=== PATIENT | female | born 1970 | race Two or more races ===

== ENCOUNTER 2020-02-05 13:12 | Emergency (ER) | payer SELFPAY ==
[~2020-02-05] VITALS: Ht 165.1 cm; Wt 56.2 kg
--- NOTE | 2020-02-05 13:23 | NUR ---
dr roland at bedside for eval.
--- NOTE | 2020-02-05 13:24 | NUR ---
pt to er bed 02 c/o dizziness w/ generalized weakness for the past 2 days now. pt was told by pmd to go to er for low hemoglobin. pt placed on monitor. stable vitals. awaiting md blanca.
[2020-02-05] MEDS ORDERED: IV NS 0.9% 1,000 ML BAG IV ONE (13:30)
--- NOTE | 2020-02-05 13:35 | NUR ---
iv line started blood drawn and sent to lab.
[2020-02-05 13:44] LABS: BASOPHILS % (AUTO) 0.8 % (0.0-2.0); EOSINOPHILS % (AUTO) 4.2 % (0.0-6.0); HEMATOCRIT 25 % (33-45); HEMOGLOBIN 7.4 g/dL (11.5-14.8); LYMPHOCYTES # (AUTO) 1.4 /CMM (0.8-4.8); LYMPHOCYTES % (AUTO) 27.9 % (20.0-44.0); MEAN CORPUSCULAR HGB CONC 29 g/dl (31.0-36.0); MEAN CORPUSCULAR VOLUME 63 fL (82-100); MONOCYTES # (AUTO) 0.4 /CMM (0.1-1.30); MONOCYTES % (AUTO) 7.4 % (2.0-12.0); NEUTROPHILS % (AUTO) 59.7 % (43.0-81.0); PLATELET COUNT (AUTO) 248 /CMM (150-450)
[2020-02-05 13:49] LABS: CALCIUM, SERUM 8.6 mg/dL (8.5-10.1); CREATININE 0.6 mg/dL (0.6-1.3); POTASSIUM 3.5 mmol/L (3.5-5.1)
[2020-02-05 13:55] LABS: ALBUMIN 3.8 g/dL (3.4-5.0); BILIRUBIN,DIRECT 0.1 mg/dL (0.0-0.2); BILIRUBIN,TOTAL 0.6 mg/dL (0.2-1.0); TOTAL PROTEIN, SERUM 7.8 g/dL (6.4-8.2)
[2020-02-05] MEDS ORDERED: CALC500T52 PO (14:10)
[2020-02-05] MEDS ORDERED: CHOL100040 PO (14:10)
[2020-02-05 15:18] VITALS: BP 121/80
--- NOTE | 2020-02-05 15:18 | NUR ---
Patient does not wish to proceed with medical care recommended by Dr. Gregorio. Patient given information related to possible complications, up to and including , which could occur as a result of leaving the hospital at this time. Patient verbalizes understanding of risks involved due to leaving against medical advice. Patient has signed AMA form.
== END 2020-02-05 15:19 | disposition left against medical advice (07) ==
LOC: ER 13:14
DX: D64.9 Anemia, unspecified (principal); N92.0 Excessive and frequent menstruation with regular cycle; R42 Dizziness and giddiness; Z79.899 Other long term (current) drug therapy
CPT/HCPCS: 36415; 80048; 80076; 85025; 85730; 86850; 96360; 99283; J7030; 86921-TC